=== PATIENT | female | born 1960 | race Two or more races ===

== ENCOUNTER 2016-12-28 18:48 | Emergency (ER) | payer MEDICAID ==
[~2016-12-28] VITALS: Ht 175.3 cm; Wt 62.4 kg
[~2016-12-28 18:48] MED LIST: LISINOPRIL PO; OXYC-302 PO; PARO10TA56 PO; PHENOBARB PO; VENL75CA PO
[2016-12-28 19:24] LABS: HEMATOCRIT 37.4 % (34.6-47.8); HEMOGLOBIN 12.4 g/dL (11.7-16.4); WHITE BLOOD COUNT 10.4 x10^3/uL (3.4-10)
[2016-12-28] MEDS ORDERED: ONDANSETRON 2MG/ML, 2ML IVPush ONE (19:30)
[2016-12-28] MEDS ORDERED: SODIUM CHLORIDE 0.9% 1,000ML IVBOLUS ONE (19:30)
[2016-12-28] MEDS ORDERED: FAMOTIDINE 20 MG/2 ML IVP ONE (19:30)
[2016-12-28] MEDS ORDERED: MAALOX/HYOSCYAMINE/LIDOCAINE 45 ML BTL PO ONE (19:30)
[2016-12-28] MEDS ORDERED: SODIUM CHLORIDE FLUSH 10ML SYR IVF ONE (19:30)
[2016-12-28 19:36] LABS: ASPARTATE AMINO TRANSFERASE 13 U/L (15-37); BLOOD UREA NITROGEN 11 mg/dL (7-18)
[2016-12-28] MEDS ORDERED: MAALOX/HYOSCYAMINE/LIDOCAINE 45 ML BTL ONE (20:07)
[2016-12-28] MEDS ORDERED: ONDANSETRON 2MG/ML, 2ML ONE (20:07)
[2016-12-28] MEDS ORDERED: FAMOTIDINE 20 MG/2 ML ONE (20:07)
[2016-12-28] MEDS ORDERED: FIORECET PO (20:29)
[2016-12-28] MEDS ORDERED: ESTR2TAB PO (20:29)
[2016-12-28 21:07] VITALS: BP 126/74
== END 2016-12-28 21:09 | disposition home or self-care (01) ==
LOC: ED 19:45
DX: R19.7 Diarrhea, unspecified (principal); R11.2 Nausea with vomiting, unspecified; F32.9 Major depressive disorder, single episode, unspecified; Z90.49 Acquired absence of other specified parts of digestive tract
CPT/HCPCS: 36415; 74020; 80053; 81001; 83690; 85025; 93005; 96361; 96374; 96375; 99285; J2405; J7030; S0028

== ENCOUNTER 2017-01-12 17:52 | Emergency (ER) | payer MEDICAID ==
[~2017-01-12] VITALS: Ht 175.3 cm; Wt 61.6 kg
[~2017-01-12 17:52] MED LIST changes: +ESTR2TAB PO; +FIORECET PO
[2017-01-12] MEDS ORDERED: HYDROcodone/APAP 5/325 TABLET PO STA (18:20)
[2017-01-12] MEDS ORDERED: HYDROcodone/APAP 5/325 TABLET ONE (19:53)
[2017-01-12 20:58] VITALS: BP 131/83
== END 2017-01-12 21:00 | disposition home or self-care (01) ==
LOC: ED 20:54
DX: S92.351A Displaced fracture of fifth metatarsal bone, right foot, initial encounter for closed fracture (principal); Z90.49 Acquired absence of other specified parts of digestive tract; X58.XXXA Exposure to other specified factors, initial encounter; Y93.89 Activity, other specified; Y99.8 Other external cause status; Y92.89 Other specified places as the place of occurrence of the external cause
CPT/HCPCS: 99284

== ENCOUNTER 2017-02-02 21:51 | Emergency (ER) | payer MEDICAID ==
[~2017-02-02] VITALS: Ht 175.3 cm; Wt 57.7 kg
[2017-02-02] MEDS ORDERED: SODIUM CHLORIDE 0.9% 1,000 ML IV ONE (22:06)
[2017-02-02] MEDS ORDERED: SODIUM CHLORIDE 0.9% 1,000ML IVBOLUS ONE (22:30)
[2017-02-02] MEDS ORDERED: ACETAMINOPHEN 325 MG TABLET PO ONE (22:30)
[2017-02-02] MEDS ORDERED: OXYC-302 PO (23:24)
[2017-02-02 23:50] LABS: PATH.CAST-FLAG NOT PRESENT; SPERM-FLAG NOT PRESENT; SRC-FLAG NOT PRESENT; XTAL-FLAG NOT PRESENT; YLC-FLAG NOT PRESENT
[2017-02-02] MEDS ORDERED: ACETAMINOPHEN 325 MG TABLET ONE (23:52)
[2017-02-02] MEDS ORDERED: HYDROmorphone 2 MG/ML, 1ML ONE (23:54)
[2017-02-02 23:58] LABS: HEMATOCRIT 34.1 % (34.6-47.8); HEMOGLOBIN 11.6 g/dL (11.7-16.4); WHITE BLOOD COUNT 5.1 x10^3/uL (3.4-10)
[2017-02-03] MEDS ORDERED: HYDROmorphone 2 MG/ML, 1ML IVPush PRN
[2017-02-03 00:11] LABS: ASPARTATE AMINO TRANSFERASE 22 U/L (15-37); BLOOD UREA NITROGEN 7 mg/dL (7-18)
[2017-02-03 00:45] VITALS: BP 155/88
== END 2017-02-03 01:00 | disposition home or self-care (01) ==
LOC: ED 23:59
DX: J09.X2 Influenza due to identified novel influenza A virus with other respiratory manifestations (principal); J09.X3 Influenza due to identified novel influenza A virus with gastrointestinal manifestations; F17.200 Nicotine dependence, unspecified, uncomplicated
CPT/HCPCS: 36415; 71010; 80053; 81001; 83605; 85025; 96361; 96374; 99285; J1170; J7030